=== PATIENT | male | born 1975 | race Caucasian/White ===

== ENCOUNTER 2016-12-06 19:09 | Emergency (ER) | payer BC ==
--- NOTE | 2016-12-06 19:44 | ERNOTE ---
Upper Extremity HPI - Narrative Date of Service: 12/06/16 - General Extremities Pain Location: elbow: left Time Seen by Provider: 12/06/16 19:37 Source: patient, RN notes reviewed Exam Limitations: no limitations - Immun/Allergies/Home Medications Immunizations: IMMUNIZATION HX Immunizations Up to Date Yes Allergies/Adverse Reactions: Allergies Allergy/AdvReac Type Severity Reaction Status Date / Time No Known Allergies Allergy Unverified 12/06/16 19:18 Home Medications: HOME MEDICATIONS Amox Tr/Potassium Clavulanate [Augmentin 875-125 Tablet] 875 mg PO Q12H #20 tab 12/06/16 [Last Taken Unknown] Losartan/Hydrochlorothiazide [Losartan-Hctz 100-12.5 mg Tab] 1 each PO DAILY 06/12 [Last Taken Unknown] Omeprazole [Prilosec] 20 mg PO DAILY 12/06/16 [Last Taken Unknown] amLODIPine BESYLATE [Norvasc] 10 mg PO DAILY 12/06/16 [Last Taken Unknown] - History of Present Illness Narrative: 41 y/o male ambulatory to the ED for pain and swelling in the left elbow that began yesterday. 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 He took ibuprofen this morning, but has noticed throughout the afternoon that he is not feeling well. Method of Injury: Reports: no apparent injury Associated Symptoms: Denies: tingling, weakness, numbness distally Prior Treament: Denies: recently seen, similar symptoms before, currently on antibiotics Review of Systems - Review of Systems Constitutional: Present: fever, chills, malaise. Absent: recent illness EYE: Present: no symptoms reported ENT: Present: no symptoms reported Respiratory: Absent: shortness of breath, cough Cardiology: Absent: chest pain, syncope Gastrointestinal/Abdominal: Absent: nausea, vomiting, abdominal pain Genitourinary: Present: no symptoms reported Musculoskeletal: Present: joint pain, joint swelling Skin: Present: change in color. Absent: rash, lesions, lumps Neurological: Absent: headache, dizziness/light-headedness Endocrine: Present: no symptoms reported Hematologic/Lymphatic: Present: no symptoms reported Psych: Present: no symptoms reported - Patient's Past Medical History Patient History - Medical: No pertinent hx Patient History - Cardiac/Respiratory: Hypertension Patient History - Cancer: No Hx of Cancer Patient History - Surgical Procedures: No surgical history - Social History Living Situations: spouse Smoking Status: Never smoker Have you smoked in the past 12 months: No Alcohol Use: heavy Drug Use: none - Immunizations Immunizations Up to Date: Yes Physical Exam - Physical Exam General Appearance: Present: wd/wn, alert, no apparent distress Respiratory: Present: no respiratory distress, normal breath sounds, no accessory muscle use, lungs clear Cardiovascular/Chest: Present: regular rate, rhythm, no murmur, normal peripheral pulses Extremity Exam: Present: decreased range of motion - Left elbow - painful, joint redness - left elbow, joint swelling - left elbow, extremity edema - left elbow extending into forearm, other - no left elbow effusion Neurological Exam: Present: alert, oriented, normal mood/affect, no motor/ sensory deficits Skin Exam: Present: normal color, warm/dry ED Progress - Results and Orders Patient's Lab Results:: I have reviewed the patient's lab results. - Vital Signs Patient's Vital Signs:: I have reviewed the patient's vital signs. Vital Signs: Vital Signs 12/06/16 19:14 Temperature 37.8 C H Pulse Rate 111 H Respiratory 12 Rate Blood Pressure 131/81 O2 Sat by Pulse 98 Oximetry - X-Ray X-Ray #1 X-Ray: elbow Interpretation: Reviewed by me X-ray Comments: Left No acute osseous abnormality - Progress/Reassessment Chief Complaint: Upper Extremity Injury/Problem Progress:: Unchanged Departure Clinical Impression: Cellulitis of left elbow - Departure Disposition: Home Follow Up Needed Condition: Stable Instructions: Elbow Bursitis, [id number], Cellulitis, Adult, [id number] Additional Instructions: Limit use of left elbow and avoid resting your weight on it Elevate your arm as much as possible Tylenol and/or ibuprofen for pain/fever Return for worsening symptoms or if you have not improved in 48 hours Referrals: Elvi Barone FNP [Primary Care Provider] - Prescriptions: Amox Tr/Potassium Clavulanate [Augmentin 875-125 Tablet] 875 mg PO Q12H #20 tab
--- OUTSIDE RECORDS SUMMARY | 2016-12-06 19:47 | XMS REPORT | Continuity of Care Document ---
:1975 Author Organization [employer] [place] [address] Care Team Providers Name Role Phone Unavailable Primary Care Provider Unavailable Source Comments This disclosure is being made pursuant to the [employer] program and maynot contain all information available regarding this patient.[employer] Active Allergies and Adverse Reactions Not on File Current Medications Be aware that medications may not be up to date as of this document. Alwaysverify current medications with the patient. Not on file Active Problems Not on file Social History Tobacco Use Types Packs/Day Years Used Date Never Assessed Plan of Care Health Maintenance Due Date Last Done Comments Retired-Pertussis Vaccine Adult 02/20/1995 Retired-Tetanus Vaccine Adult 02/20/1995 Retired-INFLUENZA VACCINE 02/25/2015 Results from Last 3 Months Not on file
[2016-12-06 19:51] LABS: Hematocrit 36.8 % (42.0-52.0); Hemoglobin 12.8 gm/dL (13.5-18.0); Mean Cell Volume 85.2 fl (78-100); Mean Corpuscular Hemoglobin 29.6 pg (27-31); Mean Corpuscular Hgb Conc 34.8 g/dl (32-36); Mean Platelet Volume 9.5 fl (6.0-9.5); Neutrophil # 9.7 K/mm3 (1.3-6.0); Neutrophil % 77.1 % (42-75.0); Platelet Count 236 K/mm3 (150-450); Red Blood Count 4.32 M/mm3 (4.7-6.0); Red Cell Distribution Width 13.4 % (11.5-14.0); White Blood Count 12.5 K/mm3 (4.0-10.5)
[2016-12-06 20:02] LABS: Albumin * 3.7 gm/dl (3.4-5.0); Anion Gap 9.9 mmol/L (6.8-13.8); BUN/Creatinine Ratio 13.9 (9.0-21.6); Bilirubin, Total 0.9 mg/dL (0.0-1.1); CRP 5.7 mg/dL (0.0-0.9); Ca. Corrected For Albumin 8.5 mg/dL (8.4-10.2); Calcium * 8.6 mg/dL (7.9-10.9); Carbon Dioxide 31.7 mmol/L (24-32.6); Potassium 3.6 mmol/L (3.4-4.6); Total Protein 7.4 gm/dL (6.2-8.2)
[2016-12-06 20:41] VITALS: BP 126/86
== END 2016-12-06 20:55 | disposition home or self-care (01) ==
LOC: EDBD → MERGE 19:09 → ER 19:09
DX: L03.114 Cellulitis of left upper limb (principal); I10 Essential (primary) hypertension